=== PATIENT | female | born 1960 | race African-American/Black ===

== ENCOUNTER → 2021-10-03 | Emergency (ER) | payer MEDICAID ==
[~2021-10-03] VITALS: Ht 167.6 cm; Wt 64.0 kg
[~2021-10-03] MED LIST: DOPAMINE 400MG/250ML PREMIX 250 ML IV ONE; EPINEPHRINE 0.1MG/ML (1:10,000) 10ML SYR ONE; EPINEPHRINE 5 MG in SODIUM CHLORIDE 0.9% 245 ML IV PRN; NOREPINEPHRINE 8MG/250ML PMX 250 ML IV ONE
[2021-10-03 11:18] VITALS: BP 104/66
[2021-10-03 11:32] LABS: HEMATOCRIT. 25.2 % (36.0-48.0); HEMOGLOBIN. 7.8 g/dL (12.0-16.0); MEAN CORPUSCULAR HEMOGLOBIN 26.1 pg (28.0-32.0); RED CELL DISTRIBUTION WIDTH 18.2 % (11.6-14.6)
[2021-10-03 11:44] LABS: CHLORIDE 115 mEq/L (98-107)
[2021-10-03 12:11] LABS: NUCLEATED RED BLOOD CELLS 2 /100 WBC
[2021-10-03 12:12] LABS: PLATELET ESTIMATE NORMAL
[2021-10-03 12:14] LABS: PLATELET 144 x1000/uL (130-400)
== END ==
LOC: ER 11:03 → CANBEDREQ 12:10
DX: I46.9 Cardiac arrest, cause unspecified (principal); R06.02 Shortness of breath; D64.9 Anemia, unspecified; R77.8 Other specified abnormalities of plasma proteins; R09.02 Hypoxemia
CPT/HCPCS: 31500; 36415; 36556; 80053; 83605; 83690; 83880; 84145; 84484; 85025; 87040; 92950; 93005; 96365; 99291; J1265; J3490; J7050; Z7610